=== PATIENT | male | born 1985 | race Caucasian/White ===

== ENCOUNTER → 2018-09-19 | Day surgery (SDC) | payer OTHER ==
[~2018-09-19] MED LIST: FLEXERIL PO; LEXAPRO20 MG PO; LISINOPRIL20 MG PO; MOBIC7.5 M1 PO; NOHOMEMEDICATIONS; PERCOCET 5-3251 EACH PO; ROBAXIN 750 MG750 MG PO; TYLENOL EXTRA500 MG PO; WELLBUTRIN XL300 MG PO
--- NOTE | 2018-09-23 10:35 | OP ---
[address] [address] OPERATIVE REPORT Name: MOHINDRE LAKE Room: [facility]#: [id number] Admission: 09/19/18 Attend Phys: Favian Jimenez II Discharge: Date of : 81 Report #: [id number] THIS REPORT FOR: //name// CC: Micheal Jimenez DATE OF SERVICE: 09/19/2018 PREOPERATIVE DIAGNOSIS: Left knee medial meniscus tear. POSTOPERATIVE DIAGNOSES: 1. Left knee medial meniscus tear. 2. Lateral meniscus tear. 3. Grade 3 chondromalacia, patellofemoral groove. PROCEDURES PERFORMED: 1. Left knee arthroscopic surgery, including partial medial and lateral meniscectomy. 2. Abrasion chondroplasty, patellofemoral groove down to bleeding bone. SURGEON: Favian Jimenez II, DO. TRAPEZE ARTIST: NATACHA Jose. ANESTHESIA: Per operative record. ESTIMATED BLOOD LOSS: Minimal. ANTIBIOTICS: Per operative record. DRAINS: None. COMPLICATIONS: None. CONDITION OF THE PATIENT: Stable to the recovery room. DESCRIPTION OF PROCEDURE: The patient was taken to the operative suite, placed supine on the operating table and given appropriate anesthesia. The patient's affected lower extremity was sterilely prepped and draped. Surgery began by making medial lateral portal incision. The arthroscope was advanced in the joint. There was found to be a posterior horn medial meniscus tear, which was debrided back to good stable margins and then smoothed using Coblation wand in appropriate fashion. There was also noted to be posterior horn and anterior horn meniscus tear. Utilizing a shaver, resection of the meniscus tears was performed on the posterior and anterior horns and then smoothed with Coblation wand in appropriate fashion. There was also found to be a grade 3 [facility] [address] [place] [address] OPERATIVE REPORT Name: MOHINDER LAKE Room: [facility]#: [id number] Admission: 09/19/18 Attend Phys: Favian Jimenez II Discharge: Date of : 81 Report #: [id number] chondromalacia of the patellofemoral groove. Utilizing a shaver, an abrasion chondroplasty was performed down to bleeding bone on the patellofemoral groove and then smoothed using Coblation wand in an appropriate fashion. ACL and PCL appeared intact and were probed. The knee was then drained of arthroscopic fluid, closed with 4-0 nylon in a simple fashion and Dermabond and sterile dressing applied. The patient transported to the recovery room in stable condition. Counts were correct throughout the procedure. <ELECTRONICALLY SIGNED> By: Favian Jimenez II, DO 09/23/18 [id number] Jimenez II, DO /nt
== END | disposition home or self-care (01) ==
LOC: M.SUR 12:35
DX: S83.282A Other tear of lateral meniscus, current injury, left knee, initial encounter (principal); S83.242A Other tear of medial meniscus, current injury, left knee, initial encounter; M22.42 Chondromalacia patellae, left knee; I10 Essential (primary) hypertension; G47.30 Sleep apnea, unspecified; F17.210 Nicotine dependence, cigarettes, uncomplicated; E66.9 Obesity, unspecified; F32.9 Major depressive disorder, single episode, unspecified; Z98.890 Other specified postprocedural states; Z88.8 Allergy status to other drugs, medicaments and biological substances; Z79.899 Other long term (current) drug therapy; X58.XXXA Exposure to other specified factors, initial encounter; Y93.89 Activity, other specified; Y92.89 Other specified places as the place of occurrence of the external cause; Y99.8 Other external cause status